=== PATIENT | female | born 1955 | race Caucasian/White ===

== ENCOUNTER 2019-11-05 08:07 | Day surgery (SDC) | payer OTHER ==
[~2019-11-05] VITALS: Ht 160 cm; Wt 65.8 kg
[2019-11-05] MEDS ORDERED: fentaNYL 0.05 MG/ML VIAL ONE (09:29)
[2019-11-05] MEDS ORDERED: LIDOCAINE 2% 100 MG/5 ML UJET TP ONE (09:29)
[2019-11-05] MEDS ORDERED: MIDAZOLAM 2 MG/2 ML VIAL ONE (10:10)
[2019-11-05] MEDS ORDERED: fentaNYL 0.05 MG/ML VIAL IVP ONE (10:25)
== END 2019-11-05 11:00 | disposition home or self-care (01) ==
LOC: MMU 08:07 → MDS 08:07
PROVIDERS: ATTEND Internal Medicine Gastroenterology
DX: Z12.11 Encounter for screening for malignant neoplasm of colon (principal); K57.30 Diverticulosis of large intestine without perforation or abscess without bleeding; K76.0 Fatty (change of) liver, not elsewhere classified; E66.3 Overweight; Z87.891 Personal history of nicotine dependence; Z88.1 Allergy status to other antibiotic agents; Z79.899 Other long term (current) drug therapy
CPT/HCPCS: 45378; J2250; J3010